=== PATIENT | female | born 1990 | race Caucasian/White ===

== ENCOUNTER 2016-08-07 20:21 | Emergency (ER) | payer OTHER ==
[~2016-08-07] VITALS: Ht 165.1 cm; Wt 58.0 kg
[~2016-08-07 20:21] MED LIST: PROM25TA5 PO
[2016-08-07 20:22] VITALS: BP 130/66; PULSE 108; RESP 16; TEMP 99.5; O2SAT 98
[2016-08-07] MEDS ORDERED: SERO25TA PO (20:39)
[2016-08-07 21:17] LABS: BLOOD, URINE MOD (NEG); COMMENT (UR) CULT NOT INDICATED; CULTURE IF INDICATED CULT NOT INDICATED; GLUCOSE,URINE NEG (NEG); KETONE, URINE NEG (NEG); MUCUS URINE FEW /lpf (OCC); NITRITE,URINE NEG (NEG); PH, URINE 7.5 (5.0-8.5); SQUAMOUS EPITHELIAL CELL URINE 3 /hpf (0-5); URINE COLOR YELLOW (YELLW/STRAW)
== END 2016-08-07 21:30 | disposition left against medical advice (07) ==
LOC: NED 20:21
DX: L98.9 Disorder of the skin and subcutaneous tissue, unspecified (principal)
CPT/HCPCS: 81001; 84703; 99281

== ENCOUNTER 2016-09-20 10:21 | Emergency (ER) | payer OTHER ==
[~2016-09-20] VITALS: Ht 165.1 cm; Wt 60.0 kg
[~2016-09-20 10:21] MED LIST changes: -PROM25TA5 PO; +SERO25TA PO
[2016-09-20 10:22] VITALS: BP 128/77; PULSE 118; RESP 16; TEMP 99.1; O2SAT 98
[2016-09-20 11:22] VITALS: BP 111/58; PULSE 88; RESP 14; TEMP 99.6; O2SAT 99
--- NOTE | 2016-09-20 11:33 | PD ---
HPI Chief Complaint: ENT Complaint Time Seen by Provider: 11:32 Travel History International Travel<30 days: No Contact w/Intl Traveler<30days: No Traveled to known affect area: No History of Present Illness HPI 26 YO F presents to the ED for evaluation of 1 day history of sore throat, sinus congestion, non productive cough. She also complains of vaginal discharge after unprotected sex with a new male partner. Patient denies ear pain, rhinorrhea, fever, chills, abdominal pain, N/V, dysuria. LMP "last month" uses Depo injection for BC. Current smoker. 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) Allergies-Medications (Allergen,Severity, Reaction): Coded Allergies: Latex (Verified Allergy, Severe, 09/20/16) Reported Meds & Prescriptions Reported Meds & Active Scripts Active Magic Mouthwash Adult Liq (Multi-Ingredient Mouthwash/Gargle) 120 Ml Susp 10 Ml SWISH-SWAL ACHS Each 5mL contains: Nystatin 200,000units, Diphenhydramine 4.25mg, Viscous Lidocaine 10mg, Moss syrup 0.8 mL Reported Seroquel (Quetiapine Fumarate) 25 Mg Tab 25 Mg PO BID Review of Systems Except as stated in HPI: all other systems reviewed are Neg Physical Exam Narrative GENERAL: Well-nourished, well-developed white female in NAD. SKIN: Warm and dry. HEAD: Normocephalic. Atraumatic. EYES: No scleral icterus. No injection or drainage. PERRLA. EOMI. ENT: Pearly prieto tympanic membranes bilaterally. Nasal mucosa is moist. Oropharynx without erythema, edema or exudate. No tonsils present. NECK: Supple, trachea midline. No JVD or lymphadenopathy. CARDIOVASCULAR: Regular rate and rhythm without murmurs, gallops, or rubs. . 2+ DP and radial pulses bilaterally. RESPIRATORY: Breath sounds clear and equal bilaterally. No accessory muscle use. GASTROINTESTINAL: Abdomen soft, non-tender, nondistended. + Bowel sounds GENITOURINARY: Normal external genitalia without lesions or erythema. Vaginal vault without blood. Small amount of thick white drainage. Cervical os was closed without drainage. No cervical motion tenderness. Uterus nontender and nonenlarged. Bilateral adnexa nontender without masses. MUSCULOSKELETAL: No cyanosis, or edema. Patient is ambulatory, moves the extremities spontaneously. BACK: Nontender without obvious deformity. No CVA tenderness. Data Data Last Documented VS Vital Signs Date Time Temp Pulse Resp B/P Pulse Ox O2 Delivery O2 Flow Rate FiO2 09/20/16 11:22 99.6 88 14 111/58 99 Room Air Orders Group A Rapid Strep Screen (09/20/16 11:42) Ed Urine Pregnancytest Poc (09/20/16 11:42) Urinalysis - C+S If Indicated (09/20/16 11:42) Wet Prep Profile (09/20/16 11:42) Gc And Chlamydia Pcr (09/20/16 11:42) Strep Culture (Group A) (09/20/16 12:10) Labs Laboratory Tests Test 09/20/16 12:24 Urine Color LIGHT-YELLOW Urine Turbidity CLEAR Urine pH 6.5 Urine Specific [place] 1.005 Urine Protein NEG mg/dL Urine Glucose (UA) NEG mg/dL Urine Ketones NEG mg/dL Urine Occult Blood NEG Urine Nitrite NEG Urine Bilirubin NEG Urine Urobilinogen LESS THAN 2.0 MG/DL Urine Leukocyte Esterase NEG Urine RBC 1 /hpf Urine WBC LESS THAN 1 /hpf Urine Squamous Epithelial 3 /hpf Cells Urine Bacteria RARE /hpf Microscopic Urinalysis Comment CULT NOT INDICATED Clue Cells (Wet Prep) NONE SEEN Vaginal Trichomonas (Wet Prep) NONE SEEN Vaginal Yeast (Wet Prep) NONE SEEN MDM Medical Decision Making Medical Screen Exam Complete: Yes Emergency Medical Condition: Yes Differential Diagnosis pharyngitis versus strep pharyngitis versus STI versus UTI versus candidiasis versus other Narrative Course 26 YO F presents to the ED for evaluation of 1 day history of sore throat, sinus congestion, non productive cough. She also complains of vaginal discharge after unprotected sex with a new male partner. Patient denies ear pain, rhinorrhea, fever, chills, abdominal pain, N/V, dysuria. LMP "last month" uses Depo injection for BC. Current smoker. Vitals reviewed. Physical exam reveals a nontoxic appearing white female in NAD. ENT exam is unremarkable. Pelvic exam with a small amount of thick white discharge in the vaginal vault. Exam otherwise unremarkable. Rapid strep swab, wet prep, UPT negative. No culture of the UA indicated. I offered the patient empiric treatment for GC and chlamydia which she declined. I discussed the results of the labs with the patient. I counselled her to quit smoking, use condoms. I provided a magic mouthwash prescription for throat pain. She is instructed to follow with the PCP. She is agreeable to the care plan. She is stable and discharged. Diagnosis Primary Impression: Pharyngitis Qualified Code: J02.9 - Pharyngitis, unspecified etiology Additional Impression: Vaginal discharge Referrals: Primary Care Physician Patient Instructions: General Instructions, Vaginal Discharge (ED) Additional Instructions: Rest. hydrate. Stop smoking. Use condoms to decrease the chance of yves STDs. Gargle and spit magic mouthwash a few times per day as needed for sore throat. Follow up with the primary care provider. Return to the ED for any urgent or emergent medical condition. Med/Other Pt SpecificInfo: Prescription(s) given Scripts Ygnrazwa-Ahynngguihwrsmy-Ryteqspki Liq (Magic Mouthwash Adult Liq)120 Ml Susp10 Ml SWISH-SWAL ACHS #120 ML Ref 0 Each 5mL contains: Nystatin 200,000units, Diphenhydramine 4.25mg, Viscous Lidocaine 10mg, Moss syrup 0.8 mL Prov:Alta Bonner MD 09/20/16 Disposition: 01 DISCHARGE HOME Condition: Stable Sarah Herrera Sep 20, 2016 11:33
[2016-09-20 12:47] LABS: BACTERIA, URINE RARE /hpf; BLOOD, URINE NEG (NEG); COMMENT (UR) CULT NOT INDICATED; CULTURE IF INDICATED CULT NOT INDICATED; GLUCOSE,URINE NEG (NEG); KETONE, URINE NEG (NEG); NITRITE,URINE NEG (NEG); PH, URINE 6.5 (5.0-8.5); SQUAMOUS EPITHELIAL CELL URINE 3 /hpf (0-5); URINE COLOR LIGHT-YELLOW (YELLW/STRAW)
[2016-09-20] MEDS ORDERED: MAGICADU2 SWISH-SWAL (13:06)
[2016-09-20 16:12] LABS: CHLAMYDIA PCR NOT DETECTED (NOT DETECT); NEISSERIA PCR NOT DETECTED (NOT DETECT)
== END 2016-09-20 13:16 | disposition home or self-care (01) ==
LOC: NEPD 10:21
DX: J02.9 Acute pharyngitis, unspecified (principal); N98.9 Complication associated with artificial fertilization, unspecified; F17.210 Nicotine dependence, cigarettes, uncomplicated
CPT/HCPCS: 81001; 84703; 87081; 87210; 87491; 87591; 87880; 99284

== ENCOUNTER 2016-09-30 19:57 | Emergency (ER) | payer OTHER ==
[~2016-09-30] VITALS: Ht 170.2 cm; Wt 55.0 kg
[~2016-09-30 19:57] MED LIST changes: +MAGICADU2 SWISH-SWAL
[2016-09-30 19:59] VITALS: BP 126/67; PULSE 99; RESP 16; TEMP 99.5; O2SAT 97
[2016-09-30] MEDS ORDERED: PHEN-510 PO (20:14)
[2016-09-30] MEDS ORDERED: CIPR500T2 PO (20:14)
[2016-09-30] MEDS ORDERED: CIPROFLOXACIN 500 MG TAB PO ONE (20:15)
[2016-09-30] MEDS ORDERED: PHENAZOPYRIDINE HCL 200 MG TAB PO ONE (20:15)
--- NOTE | 2016-09-30 20:17 | PD ---
HPI Chief Complaint: Complaint Time Seen by Provider: 20:14 Travel History International Travel<30 days: No Contact w/Intl Traveler<30days: No Traveled to known affect area: No History of Present Illness HPI 26-year-old white female presents to emergency department with a one-day history of increased urinary frequency, dysuria and burning by her urethra. She states that she has had urinary tract infections in the past. She has had general malaise. No fever chills. No nausea vomiting. No abdominal pain or vaginal complaints. Denies . Currently on Depo-Provera. No rashes or lesions. PFSH Past Medical History Narrative Medical Bipolar, anxiety, depression, UTI Bipolar Disorder: Yes Anxiety: Yes Depression: Yes (MANIC DEPRESSION) Diminished Hearing: No Psychiatric: Yes (MANIC DEPRESSANT, BIPOLAR) Reproductive: Yes (OVARIAN CYSTS) Immunizations Current: Yes Pneumonia: Yes Tetanus Vaccination: < 5 Years Menopausal: No : 1 Para: 1 Miscarriage: 0 : 0 Ovarian Cysts: Yes Past Surgical History Abdominal Surgery: Yes (LAP FOR TWISTED COLON) Tonsillectomy: Yes Social History Alcohol Use: Yes (RARE) Tobacco Use: Yes (04/05 ppd) Substance Use: Yes (IV DILAUDID: QUIT MAY 2013) Allergies-Medications (Allergen,Severity, Reaction): Coded Allergies: Latex (Verified Allergy, Severe, 09/30/16) Reported Meds & Prescriptions Reported Meds & Active Scripts Active Pyridium (Phenazopyridine HCl) 200 Mg Tablet 1 Tab PO TID Ciprofloxacin (Ciprofloxacin HCl) 500 Mg Tab 500 Mg PO BID Magic Mouthwash Adult Liq (Multi-Ingredient Mouthwash/Gargle) 120 Ml Susp 10 Ml SWISH-SWAL ACHS Each 5mL contains: Nystatin 200,000units, Diphenhydramine 4.25mg, Viscous Lidocaine 10mg, Moss syrup 0.8 mL Reported Seroquel (Quetiapine Fumarate) 25 Mg Tab 25 Mg PO BID Review of Systems Except as stated in HPI: all other systems reviewed are Neg Physical Exam Narrative GENERAL: Well-developed, well-nourished in no acute distress. Nontoxic appearing. HEAD: Normocephalic, atraumatic. EYES: Pupils equal round and reactive. Extraocular motions intact. No scleral icterus. No injection or drainage. ENT: TMs clear without erythema. The external auditory canals clear. Nose: clear . Posterior pharynx is pink and moist. No tonsillar edema or exudate. Uvula midline. Airway patent. NECK: Trachea midline.Supple, nontender, moves head freely. No central bony tenderness or spasm. CARDIOVASCULAR: Regular rate and rhythm without murmurs, gallops, or rubs. RESPIRATORY: Clear to auscultation. Breath sounds equal bilaterally. No wheezes , rales, or rhonchi. GASTROINTESTINAL: Abdomen soft, non-tender, nondistended. No hepato-splenomegaly , or palpable masses. No guarding. EXTREMITIES: No clubbing, cyanosis, or edema. No joint tenderness, effusion, or edema noted. BACK: Nontender without deformity or crepitance. No flank tenderness. Data Data Last Documented VS Vital Signs Date Time Temp Pulse Resp B/P Pulse Ox O2 Delivery O2 Flow Rate FiO2 09/30/16 19:59 99.5 99 16 126/67 97 Room Air Orders Ciprofloxacin (Cipro) (09/30/16 20:15) Phenazopyridine (Pyridium) (09/30/16 20:15) Urinalysis - C+S If Indicated (09/30/16 20:11) MDM Medical Decision Making Medical Screen Exam Complete: Yes Emergency Medical Condition: Yes Medical Record Reviewed: Yes Differential Diagnosis Differential diagnosis: UTI, pyelonephritis, cystitis, vaginitis Narrative Course This is UTI. Patient is given Cipro 500 and Pyridium 200 mg by mouth Diagnosis Primary Impression: UTI (urinary tract infection) Qualified Code: N30.00 - Acute cystitis without hematuria Patient Instructions: General Instructions Additional Instructions: Rest. Increase fluids. Cipro and Pyridium. Follow-up with a primary care doctor in one week. Return to the ER for any problems. Med/Other Pt SpecificInfo: Prescription(s) given Scripts Phenazopyridine HCl (Pyridium)200 Mg Tablet1 Tab PO TID #9 Prov:Rebecca Bowles MD 09/30/16 Ciprofloxacin 500 Mg [id number] Mg PO BID #10 TAB Ref 0 Prov:Rebecca Bowles MD 09/30/16 Disposition: 01 DISCHARGE HOME Condition: Stable Jeffery King Sep 30, 2016 20:17
[2016-09-30 21:05] LABS: BACTERIA, URINE RARE /hpf; BLOOD, URINE SMALL (NEG); COMMENT (UR) CULTURE INDICATED; CULTURE IF INDICATED CULTURE INDICATED; GLUCOSE,URINE NEG (NEG); KETONE, URINE NEG (NEG); MUCUS URINE FEW /lpf (OCC); NITRITE,URINE NEG (NEG); SQUAMOUS EPITHELIAL CELL URINE <1 /hpf (0-5); URINE COLOR LIGHT-YELLOW (YELLW/STRAW)
== END 2016-09-30 20:56 | disposition home or self-care (01) ==
LOC: NEPK 19:57
DX: N39.0 Urinary tract infection, site not specified (principal); F31.9 Bipolar disorder, unspecified; F41.9 Anxiety disorder, unspecified; F17.200 Nicotine dependence, unspecified, uncomplicated; Z79.899 Other long term (current) drug therapy; F33.9 Major depressive disorder, recurrent, unspecified
CPT/HCPCS: 81001; 87077; 87086; 87186; 99284

== ENCOUNTER 2017-05-04 07:20 | Emergency (ER) | payer OTHER ==
[~2017-05-04] VITALS: Ht 165.1 cm; Wt 57.0 kg
[~2017-05-04 07:20] MED LIST changes: +CIPR500T2 PO; +PHEN-510 PO
[2017-05-04 07:35] VITALS: BP 132/71; PULSE 90; RESP 16; TEMP 97.8; O2SAT 100
[2017-05-04] MEDS ORDERED: ABIL10TA8 PO (07:41)
[2017-05-04] MEDS ORDERED: BUPR150XL PO (07:41)
--- NOTE | 2017-05-04 07:58 | PD ---
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 She has had unprotected sex. This has been going on for past couple days. She says the discharge is slightly more copious in amount than her usual and does not have a funny odor. She also has been nauseous and some pelvic pressure. Vital signs are stable. She was diagnosed with chlamydia 4-5 months ago and says that she has been treated for that. She was also diagnosed with bacterial vaginosis but did not finish the treatment for that. She is otherwise a healthy person. [facility] Past Medical History Narrative Medical List of her past medical, surgical, social and family history is reviewed from the nursing note. Bipolar Disorder: Yes Anxiety: Yes Depression: Yes (MANIC DEPRESSION) Diminished Hearing: No Psychiatric: Yes (MANIC DEPRESSANT, BIPOLAR) Reproductive: Yes (OVARIAN CYSTS) Immunizations Current: Yes Pneumonia: Yes ?: Not LMP: 04/06/17 Menopausal: No : 2 Para: 2 Miscarriage: 0 : 0 Ovarian Cysts: Yes Past Surgical History Abdominal Surgery: Yes (LAP FOR TWISTED COLON) Tonsillectomy: Yes Social History Alcohol Use: No Tobacco Use: Yes (1 ppd) Substance Use: Yes (marijuana) Allergies-Medications (Allergen,Severity, Reaction): Coded Allergies: latex (Unverified Allergy, Severe, 05/04/17) Comments List of her allergies reviewed from the nursing note. Reported Meds & Prescriptions Reported Meds & Active Scripts Active Flagyl (Metronidazole) 250 Mg Tab 250 Mg PO TID 7 Days Reported Wellbutrin Xl 24 HR (Bupropion HCl) 150 Mg Tab 75 Mg PO DAILY Abilify (Aripiprazole) 10 Mg Tab 5 Mg PO DAILY Narrative Medication List of her home medications reviewed from the nursing note. Review of Systems Except as stated in HPI: all other systems reviewed are Neg Genitourinary: Positive: Frequency, Discharge Physical Exam Narrative GENERAL: Awake, alert, no obvious distress SKIN: Focused skin assessment warm/dry. HEAD: Atraumatic. Normocephalic. EYES: Pupils equal and round. No scleral icterus. No injection or drainage. ENT: No nasal bleeding or discharge. Mucous membranes pink and moist. NECK: Trachea midline. No JVD. CARDIOVASCULAR: Regular rate and rhythm. No murmur appreciated. RESPIRATORY: No accessory muscle use. Clear to auscultation. Breath sounds equal bilaterally. GASTROINTESTINAL: Abdomen soft, non-tender, nondistended. Hepatic and splenic margins not palpable. : External inspection within normal limits. Speculum exam shows scant vaginal discharge that is normal color. No adnexal or CMT tenderness MUSCULOSKELETAL: No obvious deformities. No clubbing. No cyanosis. No edema. NEUROLOGICAL: Awake and alert. No obvious cranial nerve deficits. Motor grossly within normal limits. Normal speech. PSYCHIATRIC: Appropriate mood and affect; insight and judgment normal. Data Data Last Documented VS Orders Orders Gc And Chlamydia Pcr (05/04/17 07:58) Wet Prep Profile (05/04/17 07:58) Urinalysis - C+S If Indicated (05/04/17 07:58) Ed Urine Pregnancytest Poc (05/04/17 07:58) Ed Discharge Order (05/04/17 09:46) Labs Laboratory Tests Test 05/04/17 08:00 05/04/17 08:49 Urine Color YELLOW Urine Turbidity CLEAR Urine pH 6.0 Urine Specific [place] 1.024 Urine Protein TRACE mg/dL Urine Glucose (UA) NEG mg/dL Urine Ketones NEG mg/dL Urine Occult Blood NEG Urine Nitrite NEG Urine Bilirubin NEG Urine Urobilinogen LESS THAN 2.0 MG/DL Urine Leukocyte Esterase SMALL Urine RBC 1 /hpf Urine WBC 5 /hpf Urine Squamous Epithelial Cells 2 /hpf Urine Mucus FEW /lpf Microscopic Urinalysis Comment CULT NOT INDICATED Clue Cells (Wet Prep) PRESENT Vaginal Trichomonas (Wet Prep) NONE SEEN Vaginal Yeast (Wet Prep) NONE SEEN Chlamydia trachomatis DNA (PCR) NOT DETECTED Neisseria gonorrhoeae DNA (PCR) NOT DETECTED MDM Medical Decision Making Medical Screen Exam Complete: Yes Emergency Medical Condition: Yes Medical Record Reviewed: Yes Differential Diagnosis Vaginitis, PID, , UTI Narrative Course 9:44 AM patient's bedside urine was negative and a UA was clean. The wet prep is positive for clue cells. I will give her a prescription of Flagyl. Patient has been told that if her chlamydia or GC comes back positive she will be contacted. My suspicion is low given no adnexal tenderness or CMT. Procedures EKG Prior to Arrival: No Diagnosis Primary Impression: Bacterial vaginosis Referrals: Primary Care Physician Additional Instructions: Take the medication as per the prescription direction. Follow-up with your CLOTH PIECER if symptoms persist. Med/Other Pt SpecificInfo: Prescription(s) given Scripts Metronidazole (Flagyl) 250 Mg Tab 250 MG PO TID for Infection for 7 Days, TAB 0 Refills Prov: Ivan Peterson MD 05/04/17 Disposition: 01 DISCHARGE HOME Condition: Stable Ivan Peterson MD May 04, 2017 07:58
[2017-05-04 08:15] LABS: BILIRUBIN, URINE NEG (NEG); BLOOD, URINE NEG (NEG); GLUCOSE,URINE NEG (NEG); KETONE, URINE NEG (NEG); MUCUS URINE FEW /lpf (OCC); NITRITE,URINE NEG (NEG); SQUAMOUS EPITHELIAL CELL URINE 2 /hpf (0-5); URINE COLOR YELLOW (YELLW/STRAW); URINE LEUKOCYTE ESTERASE SMALL (NEG)
[2017-05-04] MEDS ORDERED: METR250 PO (09:45)
== END 2017-05-04 09:58 | disposition home or self-care (01) ==
LOC: NEPE 07:20
DX: N76.0 Acute vaginitis (principal); B96.89 Other specified bacterial agents as the cause of diseases classified elsewhere; F31.9 Bipolar disorder, unspecified; F17.200 Nicotine dependence, unspecified, uncomplicated; F12.90 Cannabis use, unspecified, uncomplicated
CPT/HCPCS: 81001; 84703; 87210; 87491; 87591; 99283

== ENCOUNTER 2017-05-20 20:23 | Emergency (ER) | payer OTHER ==
[~2017-05-20] VITALS: Ht 165.1 cm; Wt 56.0 kg
[~2017-05-20 20:23] MED LIST changes: +ABIL10TA8 PO; +BUPR150XL PO; -CIPR500T2 PO; -MAGICADU2 SWISH-SWAL; +METR250 PO; -PHEN-510 PO; -SERO25TA PO
[2017-05-20 20:29] VITALS: BP 116/57; PULSE 120; RESP 18; TEMP 100.6; O2SAT 96
[2017-05-20 21:55] VITALS: BP 157/87; PULSE 81; RESP 18; TEMP 98.8; O2SAT 100
--- NOTE | 2017-05-20 23:28 | PD ---
HPI Chief Complaint: Cold / Flu Symptoms Time Seen by Provider: 22:18 Travel History International Travel<30 days: No Contact w/Intl Traveler<30days: No Traveled to known affect area: No History of Present Illness HPI Patient is a 26 female coming in with 2 days of weakness aches feverish. She has not taken anything for her symptoms and she also is questioning if she is she said she took a urine test that was negative but then changed to positive patellar most likely if you leave it at test exposed to the air for that long it will change to positive even if it is negative. Patient denies nausea vomit she denies sore throat she has no specific complaint except for fever body aches and chills PFSH Past Medical History Bipolar Disorder: Yes Anxiety: Yes Depression: Yes (MANIC DEPRESSION) Diminished Hearing: No Psychiatric: Yes (MANIC DEPRESSANT, BIPOLAR) Reproductive: Yes (OVARIAN CYSTS) Immunizations Current: Yes Pneumonia: Yes ?: LMP: 05/04/2017 Menopausal: No : 2 Para: 2 Miscarriage: 0 : 0 Ovarian Cysts: Yes Past Surgical History Abdominal Surgery: Yes (LAP FOR TWISTED COLON) Tonsillectomy: Yes Social History Alcohol Use: No Tobacco Use: Yes (1 ppd) Substance Use: Yes (marijuana) Allergies-Medications (Allergen,Severity, Reaction): Coded Allergies: latex (Unverified Allergy, Severe, 05/20/17) Reported Meds & Prescriptions Reported Meds & Active Scripts Active Ibuprofen 600 Mg Tab 600 Mg PO Q6H PRN Flagyl (Metronidazole) 250 Mg Tab 250 Mg PO TID 7 Days Reported Wellbutrin Xl 24 HR (Bupropion HCl) 150 Mg Tab 75 Mg PO DAILY Abilify (Aripiprazole) 10 Mg Tab 5 Mg PO DAILY Physical Exam Narrative GENERAL: non toxic appearance SKIN: Warm and dry. HEAD: Atraumatic. Normocephalic. EYES: Pupils equal and round. No scleral icterus. No injection or drainage. ENT: No nasal bleeding or discharge. Mucous membranes pink and moist. NECK: Trachea midline. No JVD. CARDIOVASCULAR: Regular rate and rhythm. RESPIRATORY: No accessory muscle use. Clear to auscultation. Breath sounds equal bilaterally. GASTROINTESTINAL: Abdomen soft, non-tender, nondistended. Hepatic and splenic margins not palpable. MUSCULOSKELETAL: Extremities without clubbing, cyanosis, or edema. No obvious deformities. NEUROLOGICAL: Awake and alert. No obvious cranial nerve deficits. Motor grossly within normal limits. Five out of 5 muscle strength in the arms and legs. Normal speech. PSYCHIATRIC: Appropriate mood and affect; insight and judgment normal. Data Data Last Documented VS Vital Signs Date Time Temp Pulse Resp B/P (MAP) Pulse Ox O2 Delivery O2 Flow Rate FiO2 05/21/17 01:30 05/20/17 21:55 98.8 81 18 100 Orders Orders Influenzae A/B Antigen (05/20/17 22:18) Group A Rapid Strep Screen (05/20/17 22:18) Ed Urine Pregnancytest Poc (05/20/17 22:35) Strep Culture (Group A) (05/20/17 22:35) Ibuprofen (Motrin) (05/20/17 23:30) Diphenhydramine (Benadryl) (05/20/17 23:30) Urinalysis - C+S If Indicated (05/20/17 23:38) Ed Discharge Order (05/21/17 01:18) Labs Laboratory Tests Test 05/20/17 23:45 Urine Color YELLOW Urine Turbidity CLEAR Urine pH 6.5 Urine Specific [place] 1.013 Urine Protein NEG mg/dL Urine Glucose (UA) NEG mg/dL Urine Ketones NEG mg/dL Urine Occult Blood NEG Urine Nitrite NEG Urine Bilirubin NEG Urine Urobilinogen LESS THAN 2.0 MG/DL Urine Leukocyte Esterase NEG Urine RBC LESS THAN 1 /hpf Urine WBC 1 /hpf Urine Squamous Epithelial Cells 1 /hpf Microscopic Urinalysis Comment CULT NOT INDICATED MDM Medical Decision Making Medical Screen Exam Complete: Yes Emergency Medical Condition: Yes Differential Diagnosis flu vs PNA viral illness NOS other Narrative Course flu and strep swabs negative D/C home Rx Diagnosis Primary Impression: Viral illness Patient Instructions: General Instructions, Viral Syndrome (ED) Scripts Ibuprofen (Ibuprofen) 600 Mg Tab 600 MG PO Q6H Y for Pain/Inflammation, #20 TAB 0 Refills Prov: Paul Glez MD 05/21/17 Disposition: 01 DISCHARGE HOME Condition: Good Paul Glez MD May 20, 2017 23:28
[2017-05-20] MEDS ORDERED: diphenhydrAMINE HCL 25 MG CAP PO ONE (23:30)
[2017-05-20] MEDS ORDERED: IBUPROFEN 600 MG TAB PO ONE (23:30)
[2017-05-21 00:17] LABS: BILIRUBIN, URINE NEG (NEG); BLOOD, URINE NEG (NEG); GLUCOSE,URINE NEG (NEG); KETONE, URINE NEG (NEG); NITRITE,URINE NEG (NEG); PH, URINE 6.5 (5.0-8.5); SQUAMOUS EPITHELIAL CELL URINE 1 /hpf (0-5); URINE COLOR YELLOW (YELLW/STRAW); URINE LEUKOCYTE ESTERASE NEG (NEG)
[2017-05-21] MEDS ORDERED: IBUP-232 PO (01:22)
== END 2017-05-21 01:31 | disposition home or self-care (01) ==
LOC: NEPE 20:23
DX: B34.9 Viral infection, unspecified (principal); F31.9 Bipolar disorder, unspecified; F41.9 Anxiety disorder, unspecified; F17.210 Nicotine dependence, cigarettes, uncomplicated
CPT/HCPCS: 81001; 84703; 87081; 87804; 87880; 99283